=== PATIENT | female | born 1940 | race Caucasian/White ===

== ENCOUNTER 2022-08-02 15:46 | Inpatient (IN) | payer MEDICARE, OTHER, SELFPAY ==
[2022-08-02] VITALS (7 sets, daily range): BP systolic 109–132; BP diastolic 72–88; PULSE 80–106; RESP 18–36; TEMP 36.2–36.7; O2SAT 94–100; BMI 24.7; BMI 24.8
--- NOTE | 2022-08-02 16:10 | CT_ITS ---
STUDY: CT Abdomen And Pelvis W/ Contrast Injection 08/02/2022 5:34 PM REASON FOR EXAM: Female, 82 years old. ABDOMINAL PAIN Localized peritonitis left lower quadrant Technologist Notes n/v, abd pain, diarrhea, chemo TECHNIQUE: Transaxial images were obtained without oral contrast, and with IV 100mL Isovue-370 intravenous contrast. Individualized dose optimization techniques were used for this CT. COMPARISON: None. FINDINGS: Lower lobe pulmonary fibrosis. The visualized portions of the heart are within normal limits. Unremarkable liver. Gallbladder distended and can suggest hydrops. Unremarkable spleen. Unremarkable pancreas. Unremarkable bilateral adrenal glands. No acute findings of the right kidney. No acute findings of the left kidney. There is a small hiatal hernia. Unremarkable small intestine. There is a rectosigmoid mass with a stent in place.There is a fistulous tract (less likely organized perforation) extending from the sigmoid colon to the rectum. SE 601 IM: 50-63. Channel width is 8 mm and the length is 27 mm. The appendix is visualized and appears unremarkable. There are multiple colonic diverticula consistent with diverticulosis. There are no acute findings of the abdominal aorta. Unremarkable inferior vena cava. Subcentimeter mesenteric lymph nodes. Unremarkable urinary bladder. There is scoliosis of the lumbar spine. Free fluid in the pelvis. Unremarkable abdominal wall. There are diffuse degenerative changes of the visualized lumbar spine. CT/Abdomen/Pelvis W IV Cont ONLY IMPRESSION: (NOT LISTED IN ORDER OF SIGNIFICANCE) Gallbladder distended and can suggest hydrops. Large hiatal hernia. There is a rectosigmoid mass with a stent in place.There is a fistulous tract (less likely organized perforation) extending from the sigmoid colon to the rectum. SE 601 IM: 50-63. Abscess would also be in the differential. Free fluid in the pelvis. Other findings as above. Electronically Signed: Catarino Cunningham MD at 17:41 EST ,
[2022-08-02] MEDS: Morphine 4 MG/ML Syringe IV ×2 (16:33→19:11)
[2022-08-02] MEDS: 0.9% Normal Saline 1,000 ML 125 ML IV ×2 (16:33→22:40)
[2022-08-02] MEDS: Ondansetron 4 MG/2 ML Vial IV (16:34)
[2022-08-02 16:48] LABS: Absolute Lymphocyte Count 1.86 X10^3/uL (0.83-4.51); Absolute Neutrophil Count 8.2 X10^3/uL (2.0-7.7); Basophil# 0.04 X10^3/uL; Basophil% 0.4 % (0-1); Eosinophil# 0.07 X10^3/uL; Eosinophils% 0.6 % (0-5); Hematocrit 34.7 % (37-47); Hemoglobin 10.5 g/dL (12.0-15.0); Lymphocyte # 1.86 X10^3/ul (0.83-4.51); Lymphocyte % 16.3 % (19-41); Mean Corp Hgb Conc 30.3 g/dL (32-36); Mean Corpuscular Hgb 31.1 pg (27.0-32.0); Mean Corpuscular Volume 102.7 fL (81-99); Mean Platelet Vol. 9.3 fl (6.2-12.0); Monocyte# 1.17 X10^3/uL; Monocyte% 10.3 % (0-10); NRBC Flagged by Analyzer 0 % (0-5); Neutrophil # 8.18 X10^3/uL (2.7-7.7); Neutrophil % 71.7 % (47-70); Platelet Count 314 K/mm3 (150-450); RBC Distribution Width CV 12.6 % (11.6-14.6); RBC Distribution Width SD 47.6 fl (35.1-43.9); Red Blood Count 3.38 M/mm3 (4.2-5.4); White Blood Count 11.4 K/mm3 (4.4-11.0)
[2022-08-02 17:01] LABS: Anion Gap 8 (5-15); BUN 19 mg/dL (7-18); BUN/Creat Ratio 36.1 RATIO (10-20); Calcium,Total 8.3 mg/dL (8.5-10.1); Chloride 103 mmol/L (98-107); Creatinine, Serum 0.53 mg/dL (0.55-1.02); EST Glomerular Filtration Rate 118 mL/min (>60); Est Glom Filt Rate - Afr Amer 143 mL/min (>60); Estimated Creatinine Clearance 30.62 ml/min; Glucose 117 mg/dL (74-106); Potassium 3.6 mmol/L (3.5-5.1); Sodium Level 136 mmol/L (136-145)
--- NOTE | 2022-08-02 17:35 | EX.ED.DYSGE1 ---
HPI History of Present Illness Chief Complaint: Nausea/Vomiting/Diarrhea Detail of Chief Complaint: UseNausea, vomiting diarrhea after taking Gummies Metamucil Informant: patient, spouse/S.O. and family Onset/Context/Timing Onset: Days (Took Gummies Sunday morning and diarrhea started Sunday evening) Context: Sudden Onset Timing: Intermittent Quality: Now complains of left lower quadrant abdominal pain Location: Left lower quadrant abdominal pain Current Severity: Mild Maximum Severity: Moderate Worsened by: Movement Relieved by: Nothing Associated Symptoms Associated Symptoms: Per HPI narrative Narrative Narrative: Patient is an 82-year-old woman with history of breast cancer undergoing chemotherapy. She is scheduled for chemotherapy on Sunday. She was constipated. She took 1 Metamucil gummy on Sunday with no results. She took 3 Metamucil Gummies on Sunday and began to have diarrhea Sunday evening. She reports 3 loose watery stools on Sunday. 3 loose watery stools on Sunday and 2 large loose stools on Sunday. She is had 1 loose stool today. She has vomited x1 on Sunday, Sunday and today. She noted blood once in her stool. There was no mucus. She denies hematemesis or coffee-ground emesis. She denies fever, chills night sweats. She does endorse history of diverticulitis. She denies dysuria, frequency, urgency or hematuria. She denies weight loss or night sweats. She states this pain is similar to when she was diagnosed with diverticulitis. Prior similar symptoms: Yes (Diverticulitis) Recent Illness/Hospitalization: No [facility] Medical History (Updated 08/02/22 @ 18:[address] Ti Echols MD) Ovarian cancer Medical History no medical history no medical history (There is also history of diverticulitis.) Home Medications Dexilant DAILY 08/02/22 [History Last Taken Unknown] acidophilus 100 million cell-pectin, citrus 10 mg capsule 1 cap PO DAILY 08/02/22 [History Last Taken Unknown] oywdrycqml-bkneeuvzjgwyj-adgzusic 50 mg-325 mg-40 mg tablet 1 tab PO BID PRN Pain 08/02/22 [History Last Taken Unknown] gabapentin 300 mg capsule 1,200 mg PO QHS 08/02/22 [History Last Taken Unknown] iron bisglycinate,polysaccharide complex 60 mg capsule 1 cap PO DAILY 08/02/22 [History Last Taken Unknown] niacin 500 mg tablet,extended release (NiaVasc) 500 mg PO QHS 08/02/22 [History Last Taken Unknown] potassium chloride 10 mEq tablet,extended release(part/cryst) 10 meq PO DAILY 08/02/22 [History Last Taken Unknown] ropinirole 0.25 mg tablet 0.5 mg PO QHS 08/02/22 [History Last Taken Unknown] thyroid 08/02/22 [History Last Taken Unknown] Allergy/AdvReac Type Severity Reaction Status Date / Time cucumber Allergy Upset Verified 08/02/22 15:48 Stomach pineapple Allergy Nausea/Vom/ Verified 08/02/22 15:48 Diarrhea plum Allergy NEEDS Verified 08/02/22 15:48 FOLLOW-UP strawberry Allergy NEEDS Verified 08/02/22 15:48 FOLLOW-UP Sulfa (Sulfonamide Allergy Rash Verified 08/02/22 15:47 Antibiotics) tuna oil Allergy NEEDS Verified 08/02/22 15:48 FOLLOW-UP turkey Allergy NEEDS Verified 08/02/22 15:48 FOLLOW-UP Social History (Updated 08/02/22 @ 17:[address] Ti Echols MD) household members: spouse Smoking Status: Never smoker substance use type: does not use ROS ROS ED Constitutional Constitutional ED: Denies chills, fever(s), subjective, sweats or weight loss Eyes Eyes: Denies blurry vision, change in vision or diplopia ENT ENT ED: Denies ear pain, rhinorrhea or sore throat Cardiovascular Cardiovascular: Denies chest pain, orthopnea, palpitations or paroxysmal nocturnal dyspnea Respiratory/Chest Respiratory/Chest: Denies cough, dyspnea, dyspnea on exertion, orthopnea or paroxysmal nocturnal dyspnea Gastrointestinal Gastrointestinal: Reports abdominal pain, diarrhea, nausea and vomiting; Denies constipation or melena Genitourinary Genitourinary ED: Denies dysuria, hematuria or urinary frequency Musculoskeletal Musculoskeletal: Denies arthralgias, back pain, myalgias or neck pain Integumentary Denies Abrasions or rash Neurologic Neurologic: Reports weakness; Denies headache(s) or paresthesias Psychiatric Psychiatric: Reports anxiety; Denies depression Endocrine Endocrinology: Denies cold intolerance, heat intolerance or polydipsia Hematologic/Lymphatic Hematologic/Lymphatic: Denies anemia, easy bleeding or easy bruising EXAM Physical Exam Const Vital Signs: 11/23/22 15:50 08/02/22 16:37 08/02/22 18:09 Temperature 98.0 F 97.3 F L Temperature Source Temporal Temporal Pulse Rate 80 80 87 Respiratory Rate 18 22 H 18 Blood Pressure 109/73 123/86 H 118/81 H Blood Pressure Mean 85 98 93 Pulse Ox 100 99 94 Oxygen Delivery Method Nasal Cannula Nasal Cannula Nasal Cannula Oxygen Flow Rate (L/min) 4 4 3 08/02/22 18:48 Temperature Temperature Source Pulse Rate 97 Respiratory Rate 18 Blood Pressure 110/72 Blood Pressure Mean 84 Pulse Ox 95 Oxygen Delivery Method Room Air Oxygen Flow Rate (L/min) Positive well nourished and well developed General Appearance ED: well developed, NAD and pallor; Negative for cyanotic or diaphoretic HEENT Reports dry mucous membranes HEENT Narrative: Patient's conjunctive a slightly pale. Ears normal. Nares patent. Uvula midline. No deviation with protrusion. There is no erythema or exudate the posterior pharynx. Mouth ED: Yes dry mucous membranes Mouth: dry mucous membranes Eyes PERRL and EOMs intact bilaterally General Eye ED: Yes pale conjunctiva; Negative for scleral icterus Neck no lymphadenopathy, supple and no JVD Chest Wall inspection of chest normal and palpation of chest normal Resp normal respiratory effort and clear to auscultation bilaterally Cardio regular rate, regular rhythm, S1 normal heart sound, S2 normal heart sound and no murmurs GI non-distended and no masses; Negative for hepatosplenomegaly GI Narrative: There is localized peritoneal findings left lower quadrant. Abdomen is not tympanitic. Bowel sounds are diminished. Palpation: soft, tender LLQ and guarding LLQ Back/Spine no CVA tenderness Cervical Spine: Negative for cervical spine tenderness Thoracic Spine / Upper Back: Negative for thoracic spinal tenderness Lumbar Spine / Lower Back: Negative for lumbar spinal tenderness Extremity normal to inspection General Extremety ED: Negative for edema or tenderness General Extremity: Negative for edema Neuro oriented x3, CN's II-XII intact bilaterally and no sensory deficits noted Sensorium / Orientation: alert Psych mental status grossly normal Skin no rashes or lesions noted and no wounds General Skin Exam: pallor; Negative for jaundice MDM MDM MDM Narrative Medical decision making narrative: Concern patient may have diverticulitis. Because she is had significant mount of diarrhea will obtain basic metabolic panel to assess for hypokalemia and renal function. CT of the abdomen was obtained to evaluate for diverticulitis specially since patient is presently undergoing chemotherapy for ovarian cancer. Lab Data Attestation: I reviewed the patient's lab results. Lab results narrative: White count is slightly elevated with slight shift. There is no bandemia. BUN and creatinine are normal. GFR is normal. [place] normal. Labs: Laboratory Results - last 24 hr 08/02/22 08/02/22 16:40 16:40 WBC 11.4 H RBC 3.38 L Hgb 10.5 L Hct 34.7 L MCV 102.7 H MCH 31.1 MCHC 30.3 L RDW Std Deviation 47.6 H RDW Coeff of Pattie 12.6 Plt Count 314 MPV 9.3 Immature Gran % (Auto) 0.700 Neut % (Auto) 71.7 H Lymph % (Auto) 16.3 L Will % (Auto) 10.3 H Eos % (Auto) 0.6 Baso % (Auto) 0.4 Absolute Neuts (auto) 8.2 H Absolute Lymphs (auto) 1.86 Nucleated RBC % 0 Sodium 136 Potassium 3.6 Chloride 103 Carbon Dioxide 25.0 Anion Gap 8 BUN 19 H Creatinine 0.53 L Estim Creat Clear Calc 30.62 Est GFR (MDRD) Af Amer 143 Est GFR (MDRD) Non-Af 118 BUN/Creatinine Ratio 36.1 H Glucose 117 H Calcium 8.3 L Radiography Diagnostic Testing: Clinical Impression(s) from Imaging Studies Abdomen/Pelvis CT 08/02/22 16:10 IMPRESSION: (NOT LISTED IN ORDER OF SIGNIFICANCE) Gallbladder distended and can suggest hydrops. Large hiatal hernia. There is a rectosigmoid mass with a stent in place.There is a fistulous tract (less likely organized perforation) extending from the sigmoid colon to the rectum. SE 601 IM: 50-63. Abscess would also be in the differential. Free fluid in the pelvis. Other findings as above. Electronically Signed: Catarino Cunningham MD at 17:41 EST , Stent was placed because of bowel obstruction due to [employer] cancer. Since patient still has peritoneal findings on exam and in light of CT reading with slightly low white count we will treat with Zosyn and call hospitalist for admission. Treatment and Re-Evaluation Narrative: Joana Villa. Dr. Kwame La would like me to speak with surgery prior to admitting the patient. Discharge Plan Dx/Rx/DC Orders Clinical Impression: Acute localized peritonitis due to infection, Colonic fistula, Abscess of sigmoid colon, History of ovarian cancer Disposition Disposition: Acute Care Hospital [facility]
--- NOTE | 2022-08-02 20:02 | HP.PCM.HOS_ITS ---
HPI - General General Date of Admission: 08/02/22 Date of Service: 08/02/22 Chief Complaint: Nausea and vomiting, diarrhea HPI Narrative ZARINA LOUIS, is a 82 F who presents to the emergency room at [facility] with a chief complaint of intermittent nausea and vomiting over the last several days along with constipation initially several days ago which then turned to loose stools. She has some left sided mid abdominal pain, patient denies any chills or fever. Patient has a history of ovarian cancer and had her last chemo treatment approximately 3 weeks ago, she is visiting from [place] and she is due to have chemo upcoming next week. Work-up in the emergency room included labs which revealed an elevated white blo od cell count 11.4, hemoglobin was 10.5, and BUN was 19. The remainder of the labs are unremarkable. Patient had a CT of her abdomen and pelvis performed, there was noted to be a rectosigmoid mass with a stent in place, there was a fistulous track extending from the sigmoid colon to the rectum. There was free fluid in the pelvis, there was a distended gallbladder. Patient was afebrile, she was nontachycardic, and she did not appear toxic. Patient will be admitted to [place] [address] for peritonitis, general surgery will see the patient, I talked with Dr. Prather today and he states that surgery will probably not be necessary. Patient's was in the room at the time my examination, he states he would like her to return to [place] as soon as she is medically stable. [facility] Medical History (Updated 08/02/22 @ 18:[address] Ti Echols MD) Ovarian cancer Medical History no medical history Home Medications Dexilant 1 pill PO/SL DAILY GERD 08/02/22 [History Last Taken 08/02/22] acidophilus 100 million cell-pectin, citrus 10 mg capsule 1 cap PO DAILY supplement 08/02/22 [History Last Taken 08/02/22] kofeuzltpz-hlkdmsaxhanbl-dlhtlrnd 50 mg-325 mg-40 mg tablet 1 tab PO BID PRN Pain 08/02/22 [History Last Taken 08/02/22] gabapentin 300 mg capsule 1,200 mg PO QHS neuropathy 08/02/22 [History Last Taken 08/01/22] iron bisglycinate,polysaccharide complex 60 mg capsule 1 cap PO DAILY supplement 08/02/22 [History Last Taken 08/01/22] niacin 500 mg tablet,extended release (NiaVasc) 500 mg PO QHS supplement 08/02/22 [History Last Taken 08/01/22] potassium chloride 10 mEq tablet,extended release(part/cryst) 20 meq PO DAILY supplement 08/02/22 [History Last Taken 08/01/22] ropinirole 0.25 mg tablet 0.5 mg PO QHS restless leg 08/02/22 [History Last Taken 07/31/22] thyroid 1 cap PO/SL DAILY thyroid 08/02/22 [History Last Taken 08/01/22] Allergy/AdvReac Type Severity Reaction Status Date / Time cucumber Allergy Upset Verified 08/02/22 15:48 Stomach pineapple Allergy Nausea/Vom/ Verified 08/02/22 15:48 Diarrhea plum Allergy NEEDS Verified 08/02/22 15:48 FOLLOW-UP strawberry Allergy NEEDS Verified 08/02/22 15:48 FOLLOW-UP Sulfa (Sulfonamide Allergy Rash Verified 08/02/22 15:47 Antibiotics) tuna oil Allergy NEEDS Verified 08/02/22 15:48 FOLLOW-UP turkey Allergy NEEDS Verified 08/02/22 15:48 FOLLOW-UP Social History (Updated 08/02/22 @ 17:[address] Ti Echols MD) household members: spouse Smoking Status: Never smoker substance use type: does not use ROS Constitutional Constitutional: Denies anorexia, change in weight, chills, fatigue, fever(s), malaise, night sweats or weakness Eyes Eyes: Denies blurry vision, change in vision, discharge from eye(s) or eye pain Cardiovascular Cardiovascular: Denies chest pain, claudication, dyspnea on exertion, edema, lightheadedness or palpitations Respiratory/Chest Respiratory/Chest: Reports shortness of breath with exertion; Denies cough, excessive phlegm production, hemoptysis, productive cough or shortness of breath at rest Gastrointestinal Gastrointestinal: Reports diarrhea, nausea and vomiting; Denies abdominal pain, coffee ground emesis, constipation, dyspepsia, hematemesis, hematochezia or melena Genitourinary Genitourinary: Denies difficulty urinating, dysuria, hematuria, nocturia, urinary frequency, urinary hesitancy, urinary incontinence or urinary urgency Musculoskeletal Musculoskeletal: Denies back pain, joint pain, joint stiffness, joint swelling, myalgias or neck pain Neurologic Neurologic: Denies abnormal gait, abnormal speech, dizziness, focal weakness, headache(s), loss of vision, numbness, other visual disturbances, paresthesias, syncope or tingling Psychiatric Psychiatric: Denies anxiety, cognitive impairment, depression, irritability, mood swings or suicidal ideation Endocrine Endocrinology: Denies change in body appearance, cold intolerance, excessive sweating, heat intolerance, polydipsia or polyuria Hematologic/Lymphatic Hematologic/Lymphatic: Denies none, anemia, easy bleeding, easy bruising or lymphadenopathy Allergic/Immunologic Allergic/Immunologic: Denies rhinitis, urticaria, eczemia or asthma Vital Signs Vital Signs Vital Signs: 08/02/22 15:50 08/02/22 16:37 08/02/22 18:09 Temperature 98.0 F 97.3 F L Temperature Source Temporal Temporal Pulse Rate 80 80 87 Respiratory Rate 18 22 H 18 Blood Pressure 109/73 123/86 H 118/81 H Blood Pressure Mean 85 98 93 Pulse Ox 100 99 94 Oxygen Delivery Method Nasal Cannula Nasal Cannula Nasal Cannula Oxygen Flow Rate (L/min) 4 4 3 08/02/22 18:48 08/02/22 19:02 Temperature 97.3 F L Temperature Source Temporal Pulse Rate 97 97 Respiratory Rate 18 18 Blood Pressure 110/72 110/72 Blood Pressure Mean 84 84 Pulse Ox 95 95 Oxygen Delivery Method Room Air Room Air Oxygen Flow Rate (L/min) 3 Weight Weight: 57.606 kg Body Mass Index (BMI) 24.7 Physical Exam Const alert, oriented x3 and no apparent distress Constitutional Narrative: Patient appears her stated age, she does not appear to be in any acute distress, she is nontoxic-appearing General Appearance: cooperative, well kempt and well developed Orientation / Consciousness: awake, oriented to person, oriented to place and oriented to time HEENT normocephalic, head/scalp atraumatic, hearing grossly normal bilaterally and moist oral mucous membranes Eyes PERRL, EOMs intact bilaterally and conjunctivae normal Neck supple, no JVD, thyroid normal and no carotid bruits General: trachea midline Resp normal respiratory effort, no retractions and no use of accessory muscles Resp Narrative: Lung sounds are clear anteriorly, patient is on 3 L of nasal cannula oxygen Auscultation: Negative for rales, rhonchi or wheezes Cardio regular rate, regular rhythm, S1 normal heart sound, S2 normal heart sound, no rub and no gallops Cardio Narrative: There is a 2/6 systolic murmur noted at the left sternal border and apex GI normal to inspection, nondistended, normoactive bowel sounds, soft to palpation and non-distended GI Narrative: Patient has minimal abdominal tenderness to palpation in the left mid abdominal area, no rebound abdominal tenderness was noted Extremity no clubbing, cyanosis or edema Skin no rashes or lesions noted General Skin Exam: no breakdown Neuro oriented x3, CN's II-XII intact bilaterally, moves all extremities, no focal motor deficits and no sensory deficits noted Sensorium / Orientation: awake and alert Speech: speech normal Psych affect normal Results Lab / Micro Data Result Diagrams: 08/02/22 16:40 08/02/22 16:40 Labs: Laboratory Results - last 24 hr 08/02/22 16:40: WBC 11.4 H, RBC 3.38 L, Hgb 10.5 L, Hct 34.7 L, MCV 102.7 H, MCH 31.1, MCHC 30.3 L, RDW Std Deviation 47.6 H, RDW Coeff of Pattie 12.6, Plt Count 314, MPV 9.3, Immature Gran % (Auto) 0.700, Neut % (Auto) 71.7 H, Lymph % (Auto) 16.3 L, [place] % (Auto) 10.3 H, Eos % (Auto) 0.6, Baso % (Auto) 0.4, Absolute Neuts (auto) 8.2 H, Absolute Lymphs (auto) 1.86, Nucleated RBC % 0 08/02/22 16:40: Sodium 136, Potassium 3.6, Chloride 103, Carbon Dioxide 25.0, Anion Gap 8, BUN 19 H, Creatinine 0.53 L, Estim Creat Clear Calc 30.62, Est GFR (MDRD) Af Amer 143, Est GFR (MDRD) Non-Af 118, BUN/Creatinine Ratio 36.1 H, Glucose 117 H, Calcium 8.3 L Radiology Impression Abdomen/Pelvis CT 08/02/22 16:10 IMPRESSION: (NOT LISTED IN ORDER OF SIGNIFICANCE) Gallbladder distended and can suggest hydrops. Large hiatal hernia. There is a rectosigmoid mass with a stent in place.There is a fistulous tract (less likely organized perforation) extending from the sigmoid colon to the rectum. SE 601 IM: 50-63. Abscess would also be in the differential. Free fluid in the pelvis. Other findings as above. Electronically Signed: Catarino Cunningham MD at 17:41 EST , Assessment & Plan Assessment/Plan (1) Acute localized peritonitis due to infection: PLAN: Plan 1. 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 IV fluids will be administered. #2 chronic hypoxic respiratory failure-patient uses 3 to 4 L of oxygen continuously due to a history of pulmonary fibrosis. Pulse ox will be monitored. #3 pulmonary fibrosis-complicates care, management, recovery, and prognosis #4 hypothyroidism-patient uses a compounded thyroid medication as an outpatient, I asked the patient's to bring the medicine in for her tomorrow. #5 ovarian cancer-patient is undergoing chemotherapy on a continuing basis in [place] #6 history of sigmoid colon stent-patient states this was put in several years ago due to obstruction from her ovarian cancer # 7 chronic neuropathy-etiology unclear, patient takes gabapentin at home and she will remain on this in the hospital #8 restless leg syndrome-patient takes Requip at night, she will remain on this medication Charges/Coding Visit Charges Inpatient E&M: 67788 Init Hosp L3
[2022-08-02] MEDS: Pramipexole Di-HCl 0.25 MG Tablet PO (22:39)
[2022-08-02] MEDS: 0.9% Saline Lock 10 ML Syringe IV (22:39)
[2022-08-02] MEDS: Gabapentin 600 MG Tablet 1200 MG PO (22:39)
[2022-08-02] MEDS: Heparin Injection (Vial) 5,000 UNIT/ML VIAL 5000 UNIT SC (22:39)
--- NOTE | 2022-08-02 23:40 | CON.PCM.SX_ITS ---
Assessment & Plan Assessment/Plan (1) Acute localized peritonitis due to infection: PLAN: Plan Patient is having left lower quadrant pain. CT scan revealed some inflammation around the sigmoid colon stent. 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 Patient has an oncologist in [place] where she is from. She would like to recover as fast as possible to return to [place] to see her ph ysicians there. I recommend the patient stay on clear liquids and start IV antibiotics. From a surgical standpoint I do not believe there is much to do as this fistula needs to be dealt with with an extensive surgery that the patient is likely not a candidate for. Once patient's white count returns normal and her pain improves she may be discharged to home and then return to [place]. Quincy Prather MD Pager: [facility] [address] [place] [address], [address] [place] [phone] Office: HPI Consult Data Date of Consult: 08/02/22 HPI Narrative HPI Narrative: ZARINA LOUIS, is a 82 F who presents with left lower quadrant pain. Patient reports pain has been there few days. She says it only hurts when you push on it. 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 She has a sigmoid colon stent in place. She does see oncology is currently getting chemotherapy. [facility] Medical History On home oxygen therapy Ovarian cancer Medical History no medical history Home Medications Dexilant 1 pill PO/SL DAILY GERD 08/02/22 [History Last Taken 08/02/22] acidophilus 100 million cell-pectin, citrus 10 mg capsule 1 cap PO DAILY supplement 08/02/22 [History Last Taken 08/02/22] janqpoaftt-qjoxmwezpcsoh-uvzfdkuo 50 mg-325 mg-40 mg tablet 1 tab PO BID PRN Pain 08/02/22 [History Last Taken 08/02/22] gabapentin 300 mg capsule 1,200 mg PO QHS neuropathy 08/02/22 [History Last Ta margarita 08/01/22] iron bisglycinate,polysaccharide complex 60 mg capsule 1 cap PO DAILY supplement 08/02/22 [History Last Taken 08/01/22] niacin 500 mg tablet,extended release (NiaVasc) 500 mg PO QHS supplement 08/02/22 [History Last Taken 08/01/22] potassium chloride 10 mEq tablet,extended release(part/cryst) 20 meq PO DAILY supplement 08/02/22 [History Last Taken 08/01/22] ropinirole 0.25 mg tablet 0.5 mg PO QHS restless leg 08/02/22 [History Last Taken 07/31/22] thyroid 1 cap PO/SL DAILY thyroid 08/02/22 [History Last Taken 08/01/22] Allergy/AdvReac Type Severity Reaction Status Date / Time cucumber Allergy Upset Verified 08/02/22 15:48 Stomach pineapple Allergy Nausea/Vom/ Verified 08/02/22 15:48 Diarrhea plum Allergy NEEDS Verified 08/02/22 15:48 FOLLOW-UP strawberry Allergy NEEDS Verified 08/02/22 15:48 FOLLOW-UP Sulfa (Sulfonamide Allergy Rash Verified 08/02/22 15:47 Antibiotics) tuna oil Allergy NEEDS Verified 08/02/22 15:48 FOLLOW-UP turkey Allergy NEEDS Verified 08/02/22 15:48 FOLLOW-UP gluten AdvReac Other Verified 08/02/22 22:18 Social History (Updated 08/02/22 @ 17:[address] Ti Echols MD) household members: spouse Smoking Status: Never smoker substance use type: does not use ROS Constitutional Constitutional: Denies anorexia, change in weight, chills, fatigue, fever(s), malaise, night sweats or weakness Eyes Eyes: Denies blurry vision, change in vision, discharge from eye(s) or eye pain Cardiovascular Cardiovascular: Denies chest pain, claudication, dyspnea on exertion, edema, lightheadedness or palpitations Respiratory/Chest Respiratory/Chest: Reports shortness of breath with exertion; Denies cough, excessive phlegm production, hemoptysis, productive cough or shortness of breath at rest Gastrointestinal Gastrointestinal: Reports diarrhea, nausea and vomiting; Denies abdominal pain, coffee ground emesis, constipation, dyspepsia, hematemesis, hematochezia or melena Genitourinary Genitourinary: Denies difficulty urinating, dysuria, hematuria, nocturia, urinary frequency, urinary hesitancy, urinary incontinence or urinary urgency Musculoskeletal Musculoskeletal: Denies back pain, joint pain, joint stiffness, joint swelling, myalgias or neck pain Neurologic Neurologic: Denies abnormal gait, abnormal speech, dizziness, focal weakness, headache(s), loss of vision, numbness, other visual disturbances, paresthesias, syncope or tingling Psychiatric Psychiatric: Denies anxiety, cognitive impairment, depression, irritability, mood swings or suicidal ideation Endocrine Endocrinology: Denies change in body appearance, cold intolerance, excessive sweating, heat intolerance, polydipsia or polyuria Hematologic/Lymphatic Hematologic/Lymphatic: Denies none, anemia, easy bleeding, easy bruising or lymphadenopathy Allergic/Immunologic Allergic/Immunologic: Denies rhinitis, urticaria, eczemia or asthma Physical Exam Const alert and oriented x3 General Appearance: cooperative HEENT normocephalic Eyes PERRL Lymph Lymphatic: no lymphadenopathy noted Resp normal respiratory effort Cardio Rate: regular rate Rhythm: regular rhythm GI soft to palpation Palpation: tender LLQ Extremity normal to inspection Neuro CN's II-XII intact bilaterally Lab / Micro Data Result Diagrams: 08/02/22 16:40 08/02/22 16:40 Labs: Laboratory Results - last 24 hr 08/02/22 16:40: WBC 11.4 H, RBC 3.38 L, Hgb 10.5 L, Hct 34.7 L, MCV 102.7 H, MCH 31.1, MCHC 30.3 L, RDW Std Deviation 47.6 H, RDW Coeff of Pattie 12.6, Plt Count 314, MPV 9.3, Immature Gran % (Auto) 0.700, Neut % (Auto) 71.7 H, Lymph % (Auto) 16.3 L, [place] % (Auto) 10.3 H, Eos % (Auto) 0.6, Baso % (Auto) 0.4, Absolute Neuts (auto) 8.2 H, Absolute Lymphs (auto) 1.86, Nucleated RBC % 0 08/02/22 16:40: Sodium 136, Potassium 3.6, Chloride 103, Carbon Dioxide 25.0, Anion Gap 8, BUN 19 H, Creatinine 0.53 L, Estim Creat Clear Calc 30.62, Est GFR (MDRD) Af Amer 143, Est GFR (MDRD) Non-Af 118, BUN/Creatinine Ratio 36.1 H, Glucose 117 H, Calcium 8.3 L Radiology Impression Abdomen/Pelvis CT 08/02/22 16:10 IMPRESSION: (NOT LISTED IN ORDER OF SIGNIFICANCE) Gallbladder distended and can suggest hydrops. Large hiatal hernia. There is a rectosigmoid mass with a stent in place.There is a fistulous tract (less likely organized perforation) extending from the sigmoid colon to the rectum. SE 601 IM: 50-63. Abscess would also be in the differential. Free fluid in the pelvis. Other findings as above. Electronically Signed: Catarino Cunningham MD at 17:41 EST ,
[2022-08-03] VITALS (14 sets, daily range): BP systolic 67–123; BP diastolic 30–96; PULSE 75–127; RESP 14–50; TEMP 36.6–39.2; O2SAT 83–100
[2022-08-03] MEDS: Ondansetron 4 MG/2 ML Vial IV ×2 (00:38→10:00)
[2022-08-03] MEDS: Temazepam 15 MG Capsule PO (00:38)
[2022-08-03] MEDS: 0.9% Normal Saline 1,000 ML 125 ML IV ×2 (05:42→13:54)
[2022-08-03 07:21] LABS: Absolute Lymphocyte Count 1.33 X10^3/uL (0.83-4.51); Absolute Neutrophil Count 8.5 X10^3/uL (2.0-7.7); Basophil# 0.05 X10^3/uL; Basophil% 0.5 % (0-1); Eosinophil# 0.02 X10^3/uL; Eosinophils% 0.2 % (0-5); Hematocrit 33.2 % (37-47); Hemoglobin 9.9 g/dL (12.0-15.0); Lymphocyte # 1.33 X10^3/ul (0.83-4.51); Lymphocyte % 12.2 % (19-41); Mean Corp Hgb Conc 29.8 g/dL (32-36); Mean Corpuscular Hgb 30.8 pg (27.0-32.0); Mean Corpuscular Volume 103.4 fL (81-99); Mean Platelet Vol. 9.2 fl (6.2-12.0); Monocyte# 0.96 X10^3/uL; Monocyte% 8.8 % (0-10); NRBC Flagged by Analyzer 0 % (0-5); Neutrophil # 8.45 X10^3/uL (2.7-7.7); Neutrophil % 77.7 % (47-70); Platelet Count 318 K/mm3 (150-450); RBC Distribution Width CV 12.5 % (11.6-14.6); Red Blood Count 3.21 M/mm3 (4.2-5.4); White Blood Count 10.9 K/mm3 (4.4-11.0)
[2022-08-03 07:34] LABS: Anion Gap 8 (5-15); BUN 15 mg/dL (7-18); BUN/Creat Ratio 24.5 RATIO (10-20); Calcium,Total 7.7 mg/dL (8.5-10.1); Chloride 102 mmol/L (98-107); Creatinine, Serum 0.61 mg/dL (0.55-1.02); EST Glomerular Filtration Rate 99 mL/min (>60); Est Glom Filt Rate - Afr Amer 120 mL/min (>60); Estimated Creatinine Clearance 30.62 ml/min; Glucose 117 mg/dL (74-106); Potassium 3.9 mmol/L (3.5-5.1); Sodium Level 134 mmol/L (136-145)
--- NOTE | 2022-08-03 08:18 | PCM.PN.SRG ---
Subjective Subjective Still complaining of some left lower quadrant abdominal pain. She is not passing much flatus at this time. Objective Data Objective Data No rebound guarding or peritoneal signs tender in the suprapubic and left lower quadrant area Vital Signs: Vital Signs Temp Pulse Resp BP Pulse Ox O2 Del Method O2 Flow Rate 98 F 88 18 123/79 H 96 Nasal Cannula 4 08/03/22 02:35 08/03/22 02:35 08/03/22 02:35 08/03/22 02:35 08/03/22 07:55 08/03/22 07:55 08/03/22 07:55 Oxygen Flow Rate (L/min) 4 Oxygen Delivery Method Nasal Cannula Weight: 127 lb 3.307 oz Body Mass Index (BMI) 24.8 Intake & Output: Intake and Output for Last 24 Hours 08/01/22 08/02/22 08/03/22 23:59 23:59 23:59 Intake Total 864.58 / 864.58 879.17 / 879.17 Balance 864.58 / 864.58 879.17 / 879.17 Lab / Micro Data Result Diagrams: 08/03/22 07:06 08/03/22 07:06 Labs: Laboratory Results - last 24 hr 08/02/22 16:40: WBC 11.4 H, RBC 3.38 L, Hgb 10.5 L, Hct 34.7 L, MCV 102.7 H, MCH 31.1, MCHC 30.3 L, RDW Std Deviation 47.6 H, RDW Coeff of Pattie 12.6, Plt Count 314, MPV 9.3, Immature Gran % (Auto) 0.700, Neut % (Auto) 71.7 H, Lymph % (Auto) 16.3 L, [place] % (Auto) 10.3 H, Eos % (Auto) 0.6, Baso % (Auto) 0.4, Absolute Neuts (auto) 8.2 H, Absolute Lymphs (auto) 1.86, Nucleated RBC % 0 08/02/22 16:40: Sodium 136, Potassium 3.6, Chloride 103, Carbon Dioxide 25.0, Anion Gap 8, BUN 19 H, Creatinine 0.53 L, Estim Creat Clear Calc 30.62, Est GFR (MDRD) Af Amer 143, Est GFR (MDRD) Non-Af 118, BUN/Creatinine Ratio 36.1 H, Glucose 117 H, Calcium 8.3 L 08/03/22 07:06: Sodium 134 L, Potassium 3.9, Chloride 102, Carbon Dioxide 24.0, Anion Gap 8, BUN 15, Creatinine 0.61, Estim Creat Clear Calc 30.62, Est GFR (MDRD) Af Amer 120, Est GFR (MDRD) Non-Af 99, BUN/Creatinine Ratio 24.5 H, Glucose 117 H, Calcium 7.7 L 08/03/22 07:06: WBC 10.9, RBC 3.21 L, Hgb 9.9 L, Hct 33.2 L, MCV 103.4 H, MCH 30.8, MCHC 29.8 L, RDW Std Deviation 47.0 H, RDW Coeff of Pattie 12.5, Plt Count 318, MPV 9.2, Immature Gran % (Auto) 0.600, Neut % (Auto) 77.7 H, Lymph % (Auto) 12.2 L, [place] % (Auto) 8.8, Eos % (Auto) 0.2, Baso % (Auto) 0.5, Absolute Neuts (auto) 8.5 H, Absolute Lymphs (auto) 1.33, Nucleated RBC % 0 Radiography Diagnostic Testing: Radiology Impression Abdomen/Pelvis CT 08/02/22 16:10 IMPRESSION: (NOT LISTED IN ORDER OF SIGNIFICANCE) Gallbladder distended and can suggest hydrops. Large hiatal hernia. There is a rectosigmoid mass with a stent in place.There is a fistulous tract (less likely organized perforation) extending from the sigmoid colon to the rectum. SE 601 IM: 50-63. Abscess would also be in the differential. Free fluid in the pelvis. Other findings as above. Electronically Signed: Catarino Cunningham MD at 17:41 EST , Assessment & Plan Assessment/Plan (1) Acute localized peritonitis due to infection: (2) Colonic fistula: PLAN: White count is coming down. Hopefully we will be able to manage this medically.
[2022-08-03] MEDS: Heparin Injection (Vial) 5,000 UNIT/ML VIAL 5000 UNIT SC (09:41)
[2022-08-03] MEDS: 0.9% Saline Lock 10 ML Syringe IV (10:01)
[2022-08-03] MEDS: Morphine 4 MG/ML Syringe IV (10:03)
--- NOTE | 2022-08-03 12:27 | PCM.PN.HOSP ---
Subjective Subjective Follow-up on acute localized peritonitis: Patient was seen and examined. She complains of lower abdominal pain. Denies any diarrhea or fever or chills. Objective Data Objective Data Vital Signs: Vital Signs Temp Pulse Resp BP Pulse Ox O2 Del Method O2 Flow Rate 98.1 F 75 18 102/66 96 Nasal Cannula 4 08/03/22 08:41 08/03/22 08:41 08/03/22 08:41 08/03/22 08:41 08/03/22 08:41 08/03/22 08:41 08/03/22 08:41 Oxygen Flow Rate (L/min) 4 Oxygen Delivery Method Nasal Cannula Weight: 57.7 kg Body Mass Index (BMI) 24.8 Intake & Output: Intake and Output for Last 24 Hours 08/01/22 08/02/22 08/03/22 23:59 23:59 23:59 Intake Total 864.58 / 864.58 929.17 / 929.17 Balance 864.58 / 864.58 929.17 / 929.17 Lab / Micro Data Result Diagrams: 08/03/22 07:06 08/03/22 07:06 Labs: Laboratory Results - last 24 hr 08/02/22 16:40: WBC 11.4 H, RBC 3.38 L, Hgb 10.5 L, Hct 34.7 L, MCV 102.7 H, MCH 31.1, MCHC 30.3 L, RDW Std Deviation 47.6 H, RDW Coeff of Pattie 12.6, Plt Count 314, MPV 9.3, Immature Gran % (Auto) 0.700, Neut % (Auto) 71.7 H, Lymph % (Auto) 16.3 L, [place] % (Auto) 10.3 H, Eos % (Auto) 0.6, Baso % (Auto) 0.4, Absolute Neuts (auto) 8.2 H, Absolute Lymphs (auto) 1.86, Nucleated RBC % 0 08/02/22 16:40: Sodium 136, Potassium 3.6, Chloride 103, Carbon Dioxide 25.0, Anion Gap 8, BUN 19 H, Creatinine 0.53 L, Estim Creat Clear Calc 30.62, Est GFR (MDRD) Af Amer 143, Est GFR (MDRD) Non-Af 118, BUN/Creatinine Ratio 36.1 H, Glucose 117 H, Calcium 8.3 L 08/03/22 07:06: Sodium 134 L, Potassium 3.9, Chloride 102, Carbon Dioxide 24.0, Anion Gap 8, BUN 15, Creatinine 0.61, Estim Creat Clear Calc 30.62, Est GFR (MDRD) Af Amer 120, Est GFR (MDRD) Non-Af 99, BUN/Creatinine Ratio 24.5 H, Glucose 117 H, Calcium 7.7 L 08/03/22 07:06: WBC 10.9, RBC 3.21 L, Hgb 9.9 L, Hct 33.2 L, MCV 103.4 H, MCH 30.8, MCHC 29.8 L, RDW Std Deviation 47.0 H, RDW Coeff of Pattie 12.5, Plt Count 318, MPV 9.2, Immature Gran % (Auto) 0.600, Neut % (Auto) 77.7 H, Lymph % (Auto) 12.2 L, [place] % (Auto) 8.8, Eos % (Auto) 0.2, Baso % (Auto) 0.5, Absolute Neuts (auto) 8.5 H, Absolute Lymphs (auto) 1.33, Nucleated RBC % 0 Radiography Diagnostic Testing: Radiology Impression Abdomen/Pelvis CT 08/02/22 16:10 IMPRESSION: (NOT LISTED IN ORDER OF SIGNIFICANCE) Gallbladder distended and can suggest hydrops. Large hiatal hernia. There is a rectosigmoid mass with a stent in place.There is a fistulous tract (less likely organized perforation) extending from the sigmoid colon to the rectum. SE 601 IM: 50-63. Abscess would also be in the differential. Free fluid in the pelvis. Other findings as above. Electronically Signed: Catarino Cunningham MD at 17:41 EST Reading Location ID and State: [facility] / [place] , Service support , Physical Exam Narrative Physical exam: General: Alert, Oriented x3, Cooperative,appears frail, on 3L oxygen HEENT: Atraumatic Oral: Moist Mucosa Neck: Supple Lungs: Diminished to auscultation Cardiovascular: HS I+II, regular, no murmurs Abdomen: Bowel Sounds Present, Soft, Non Tender Extremities: No edema Skin: No rashes, No breakdown Neurological: Grossly intact Psych/Mental Status: Appropriate Assessment & Plan Assessment/Plan (1) Acute localized peritonitis due to infection: PLAN: Plan 1. 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 Chronic hypoxic respiratory failure secondary to pulmonary fibrosis, Patient remains on 3L oxygen 3. Hypothyroidism, continue on Synthroid 4. Ovarian cancer, undergoing chemotherapy 5.History of sigmoid colon stent/chronic neuropathy/restless leg syndrome, continue to ropinirole. 6. DVT PPx- Heparin SC Charges/Coding Visit Charges Inpatient E&M: 18717 [facility] Hosp L3
--- NOTE | 2022-08-03 14:47 | NURSING ---
entered room as staff assist alarms going off with other [facility] RNs. found patient in bed, with primary RN and PAYROLL SERVICES ANALYST bedside. Primary RN states patient was up to bathroom then became unresponsive had seizure like behavior when back in bed. Agonal resp noted pulse not palpable. 1449 code blue alarm pulled. cpr initiated pt noted to have spontaneous facial movement to 2nd or 3rd compression, pulse checked. Dr. Beth bedside. pt then appeared to go unresponsive again- see code blue documentation. pt transported to icu with , rn neonatal icu, resp therapist x2 and this RN.
--- NOTE | 2022-08-03 15:10 | EKG12_ITS ---
Test Reason : Blood Pressure : / mmHG Vent. Rate : 120 BPM Atrial Rate : 120 BPM P-R Int : 154 ms QRS Dur : 094 ms QT Int : 316 ms P-R-T Axes : 043 144 061 degrees QTc Int : 446 ms Sinus tachycardia Right bundle branch block Lateral infarct , age undetermined Abnormal ECG No previous ECGs available Confirmed by DIMITRY VARNER, DIMAS ([id number]), manager editorial RICHARD OWENS ([id number]) on 08/07/2022 11:29:18 AM Referred By: MELANY Confirmed By:DIMAS MORAES MD
--- NOTE | 2022-08-03 15:12 | RAD_ITS ---
EXAM: XR CHEST, 1 VIEW CLINICAL INDICATION: cardiopulmonary arrest TECHNIQUE: Frontal view of the chest. This report was created using [employer] report generation technology. COMPARISON: None. FINDINGS: LUNGS AND PLEURAL SPACES: Bilateral pulmonary opacities consistent with pneumonia and/or pulmonary edema. Shallow inspiration. No pneumothorax. No effusion. HEART: Heart is mildly prominent in size. MEDIASTINUM: No mediastinal or hilar mass. BONES/JOINTS: Dextroscoliosis of the thoracolumbar spine. Multilevel disc space narrowing. SOFT TISSUES: Normal. TUBES, LINES AND DEVICES: Right internal jugular central venous catheter tip in the distal superior vena cava. RAD/Chest 1 View (Portable) IMPRESSION: Bilateral pulmonary densities consistent with pneumonia and/or pulmonary edema Electronically Signed: Bryan Kaplan MD at 15:57 EST ,
[2022-08-03 15:21] LABS: Allen Test Positive; Base Excess -17 mmol/L (-2 to +2); Bicarbonate 11.7 mmol/L (22-26); Blood Gas Specimen Type ART; O2 Delivery Device NRB; PO2 170 mmHG (75-100); SITE L Radial; SO2 99 % (95-99); Total Carbon Dioxide 13 mmol/L; pCO2 34.6 mmHg (35-45); pH 7.14 (7.35-7.45)
--- NOTE | 2022-08-03 15:37 | NURSING ---
This RN contacted pt's , Taco, to notify him that the pt was transferred to the ICU following code blue on MS3. Pt's answered and understood situation.
--- NOTE | 2022-08-03 15:39 | EKG12_ITS ---
Test Reason : DYSRHYTHMIA Blood Pressure : / mmHG Vent. Rate : 138 BPM Atrial Rate : 138 BPM P-R Int : 134 ms QRS Dur : 100 ms QT Int : 390 ms P-R-T Axes : 024 142 001 degrees QTc Int : 590 ms Sinus tachycardia with occasional Premature ventricular complexes Septal infarct , age undetermined Abnormal ECG When compared with ECG of 03-AUG-2022 15:31, MANUAL COMPARISON REQUIRED, DATA IS UNCONFIRMED Confirmed by DIMITRY VARNER, DIMAS ([id number]), supervising film or videotape editor RICHARD OWENS ([id number]) on 08/07/2022 11:31:25 AM Referred By: RODNEY Confirmed By:DIMAS MORAES MD
[2022-08-03] MEDS: Furosemide 20 MG/2 ML VIAL IV (15:47)
[2022-08-03 15:55] LABS: Allen Test Positive; Base Excess -16 mmol/L (-2 to +2); Bicarbonate 12.2 mmol/L (22-26); Blood Gas Specimen Type ART; FI02 100; O2 Delivery Device NRB; PO2 117 mmHG (75-100); SITE L Radial; SO2 98 % (95-99); Total Carbon Dioxide 13 mmol/L; pCO2 31.9 mmHg (35-45); pH 7.19 (7.35-7.45)
[2022-08-03 15:55] LABS: Bedside Glucose 150 mg/dL (74-106)
[2022-08-03] MEDS: Acetaminophen 325 MG Tablet 650 MG PO (16:16)
[2022-08-03 16:34] LABS: ALB/GLOB Ratio 0.5 RATIO (0.9-2.4); AST(SGOT) 181 U/L (15-37); Alanine Aminotransfer ALT/SGPT 72 U/L (13-56); Albumin, Serum 2.3 g/dL (3.2-5.0); Alkaline Phosphatase 185 U/L (45-117); Anion Gap 16 (5-15); BUN 16 mg/dL (7-18); BUN/Creat Ratio 17.5 RATIO (10-20); Calcium,Total 7.8 mg/dL (8.5-10.1); Chloride 99 mmol/L (98-107); Creatinine, Serum 0.91 mg/dL (0.55-1.02); EST Glomerular Filtration Rate 62 mL/min (>60); Est Glom Filt Rate - Afr Amer 76 mL/min (>60); Estimated Creatinine Clearance 33.65 ml/min; Globulin 4.2 g/dL (2.2-4.2); Glucose 145 mg/dL (74-106); Potassium 4.5 mmol/L (3.5-5.1); Protein, Total 6.5 g/dL (6.4-8.2); Sodium Level 133 mmol/L (136-145)
--- NOTE | 2022-08-03 18:15 | EKG12_ITS ---
Test Reason : POST NONRESPONSI Blood Pressure : / mmHG Vent. Rate : 116 BPM Atrial Rate : 116 BPM P-R Int : 150 ms QRS Dur : 096 ms QT Int : 338 ms P-R-T Axes : 053 150 -02 degrees QTc Int : 469 ms Sinus tachycardia Otherwise normal ECG No previous ECGs available Confirmed by DIMITRY VARNER, DIMAS ([id number]), editor & co founder RICHARD OWENS ([id number]) on 08/07/2022 11:31:35 AM Referred By: EMERSON Confirmed By:DIMAS MORAES MD
[2022-08-03 19:17] LABS: Hematocrit 37.9 % (37-47); Hemoglobin 10.6 g/dL (12.0-15.0); Mean Corpuscular Hgb 30.8 pg (27.0-32.0); Mean Corpuscular Volume 110.2 fL (81-99); Mean Platelet Vol. 9.4 fl (6.2-12.0); POSITIVE COUNT YES; POSITIVE MORPHOLOGY YES; Platelet Count 137 K/mm3 (150-450); RBC Distribution Width CV 12.7 % (11.6-14.6); RBC Distribution Width SD 51.1 fl (35.1-43.9); Red Blood Count 3.44 M/mm3 (4.2-5.4); White Blood Count 21.9 K/mm3 (4.4-11.0)
--- NOTE | 2022-08-03 19:24 | EXP.PCM_ITS ---
Preliminary Cause of Preliminary Cause of Preliminary Cause of : Pulmonary embolism Date of Admission: 08/02/22 Date of : 08/03/22 Principle Diagnosis Cardiac arrest Pulseless electrical activity Metabolic acidosis Problem List: Active and Suspected Problems (Updated 08/02/22 @ 22:16 by Vijaya Castelan) Acute localized peritonitis due to infection (Acute) Colonic fistula (Acute) Abscess of sigmoid colon (Acute) History of ovarian cancer (Acute) Hospital Course Is an 82-year-old female presents with chief complaint of intermittent nausea and vomiting over the preceding few days. Patient was out of town from [place] and had a CT of her abdomen pelvis that showed a rectosigmoid mass with stent in place with fistulous tract extending from the sigmoid to the rectum. There is free fluid in the pelvis and a distended gallbladder. Patient was started on piperacillin/tazobactam for an localized peritonitis. Earlier on the , a CODE BLUE was called. Patient was going to the bathroom and then went out. Patient was placed in bed but pulse was noted immediately no CPR was initiated. Patient was unresponsive and was about to be intubated but patient's mental status slowly improved where she was able to breathe on her own clenched her teeth and then eventually was coughing. So intubation was aborted at that time. Patient was transferred to the intensive care unit and had a blood gas performed that showed pH of 7.19, PCO2 of 32. Consistent with metabolic acidosis. When patient was in the ICU, she was noted to be developing some bradycardia and then went into pulseless electrical activity. PRIYANKA BLUE was called and patient received epinephrine and chest compressions. Patient was intubated by me using glide scope. The 7.5 endotracheal tube was visualized through the glide scope going through the vocal cords. Patient had bilateral breath sounds auscultated and had color exchange. PRIYANKA BETH was then called shortly thereafter and I had time to visualize the patient's labs and she did receive epinephrine before I arrived and instructed them to give her an amp of bicarb. Patient had another CODE BLUE after being successfully resuscitated received epinephrine and another amp of bicarb, patient's heart rate with both episodes was noted to go down before she developed PEA. It happened again. Received epinephrine. I was able to speak with the patient's , who is present and he 1 the patient being full code. I did explain to him that this could happen again and expressed understanding. Labs were ordered and then again another CODE BLUE was called and he was present in the room. Patient did have a pulse and then but before that he wished to make the patient DNR Comfort Care arrest. So the next time patient was noted to be in V. tach but lost the pulse. CPR was not initiated. Patient developed an agonal rhythm. Patient was pronounced at 1915 on August 03, 2022. It is my suspicion, given the patient's travel from [place] that this could be a pulmonary embolism particular with her cancer history as a cause of her PEA and cardiac arrest. Greater than 120 minutes of critical care time performed at bedside. Visit Charges Inpatient E&M: 85393 [facility]
[2022-08-03 19:31] LABS: Differential Indicated MANUAL DIFF
[2022-08-03 19:47] LABS: Lymphocyte 20 % (19-41); Monocyte 6 % (0-10); Neutrophil-Band 6 % (0-5); Neutrophil-Segmented 68 % (47-70); Total Cells Counted 100 (MANUAL DIFF)
[2022-08-03 19:51] LABS: Macrocytosis 1+
[2022-08-03 19:52] LABS: Anisocytosis 1+; Red Cell Morphology N CHROM NORMAL (NORM C&C)
[2022-08-03 19:54] LABS: Platelet Estimate SLT DEC (ADEQ)
[2022-08-03 19:58] LABS: Absolute Lymphocyte Count 4.38 X10^3/uL (0.83-4.51); Absolute Neutrophil Count 16.2 X10^3/uL (2.0-7.7)
[2022-08-03 20:01] LABS: ALB/GLOB Ratio 0.5 RATIO (0.9-2.4); AST(SGOT) 2049 U/L (15-37); Alanine Aminotransfer ALT/SGPT 700 U/L (13-56); Alkaline Phosphatase 196 U/L (45-117); Anion Gap 19 (5-15); BUN 17 mg/dL (7-18); BUN/Creat Ratio 14.9 RATIO (10-20); Calcium,Total 7.3 mg/dL (8.5-10.1); Chloride 101 mmol/L (98-107); Creatinine, Serum 1.14 mg/dL (0.55-1.02); EST Glomerular Filtration Rate 48 mL/min (>60); Est Glom Filt Rate - Afr Amer 59 mL/min (>60); Estimated Creatinine Clearance 26.86 ml/min; Globulin 3.7 g/dL (2.2-4.2); Glucose 70 mg/dL (74-106); Potassium 4.3 mmol/L (3.5-5.1); Protein, Total 5.7 g/dL (6.4-8.2); Sodium Level 138 mmol/L (136-145)
[2022-08-04 13:29] LABS: Pathologist Review Reviewed
== END 2022-08-03 19:20 | DRG 372 ==
LOC: ED 18:48 → MS3 20:15 → ICU 08-03 15:17
PROVIDERS: Admitting Provider Internal Medicine; Emergency Provider Emergency Medicine; Visit Provider Internal Medicine
DX: K65.9 Peritonitis, unspecified (principal); K63.2 Fistula of intestine; J96.11 Chronic respiratory failure with hypoxia; C56.9 Malignant neoplasm of unspecified ovary; E87.20 Acidosis, unspecified; I46.9 Cardiac arrest, cause unspecified; J84.10 Pulmonary fibrosis, unspecified; G25.81 Restless legs syndrome; E03.9 Hypothyroidism, unspecified; R00.1 Bradycardia, unspecified; G62.9 Polyneuropathy, unspecified; K82.8 Other specified diseases of gallbladder
CPT/HCPCS: 31500; 31720; 36415; 36600; 71045; 74177; 80048; 80053; 82803; 82962; 85025; 87070; 87205; 92950; 93005; 94002; 99251; 99285; J7030; J7040; Q9967; A4216; G0463; J1940; J2405